=== PATIENT | male | born 1945 | race Hispanic/Latino ===

== ENCOUNTER 2017-01-11 10:45 | Inpatient (IN) | payer MEDICARE, OTHER ==
[2017-01-11 11:29] VITALS: BMI 27.8
[2017-01-11 11:32] LABS: ALT (SGPT) 181 U/L (8-55); AST (SGOT) 52 U/L (5-34); Albumin 3.8 g/dL (3.4-4.8); Alkaline Phosphatase 127 U/L (40-150); Anion Gap 25 mmol/L (10-20); BUN (Urea Nitrogen) 139 mg/dL (8.4-25.7); Bilirubin, Total 0.8 mg/dL (0.2-1.2); Calc. Creatinine Clearance 13 mL/min (70-130); Calcium 9.8 mg/dL (7.8-10.44); Carbon Dioxide 20 mmol/L (23-31); Chloride 94 mmol/L (98-107); Estimated GFR-MDRD 10; Glucose 182 mg/dL (83-110); Potassium 3.3 mmol/L (3.5-5.1); Protein, Total 8.8 g/dL (5.8-8.1); Sodium 136 mmol/L (136-145)
[2017-01-11 11:47] LABS: #Basophils 0.1 thou/uL (0.0-0.2); #Eosinphils 0.1 thou/uL (0.0-0.7); #Lymphocytes 1.2 thou/uL (1.20-3.40); #Monocytes 1.1 thou/uL (0.11-0.59); #Neutrophils 12.1 thou/uL (1.40-6.50); %Basophils 0.4 % (0.0-1.0); %Eosinophils 0.5 % (0.0-10.0); %Lymphocytes 8.5 % (21.0-51.0); %Monocytes 7.4 % (0.0-10.0); %Neutrophils 83.2 % (42.0-75.0); Hemoglobin 10.4 g/dL (14.0-18.0); Mean Corpuscular HGB CONC 30.8 g/dL (32.0-36.0); Mean Corpuscular Volume 71.5 fl (80.0-94.0); Mean Platelet Volume 7.5 fL (7.4-10.4); Platelet Count 247 thou/uL (130-400); RBC Distribution Width 15.4 % (11.5-14.5); Red Blood Cell (RBC) Count 4.73 mill/uL (4.70-6.10); White Blood Cell (WBC) Count 14.6 thou/uL (4.8-10.8)
[2017-01-11 11:48] LABS: Anisocytosis SLIGHT = 6-15 cells (100X) (0-5/hpf); Elliptocytes SLIGHT = 2-5 cells (100X) (0-1/hpf); MDiff Complete? YES; Microcytosis SLIGHT = 6-15 cells (100X) (0-5/hpf); PLT Morphology Comment Appears Adequate; Poikilocytosis SLIGHT = 6-15 cells (100X) (0-5/hpf)
[2017-01-11] MEDS ORDERED: Acetaminophen 325 MG TAB PO PRN (12:36)
[2017-01-11] MEDS ORDERED: Furosemide 40 MG/4 ML VIAL SLOW IVP SCH (12:45)
[2017-01-11] MEDS ORDERED: Furosemide 40 MG/4 ML VIAL ONE (13:35)
[2017-01-11] MEDS ORDERED: Heparin 5,000 UNITS/ML VIAL SC SCH (14:00)
[2017-01-11 18:24] VITALS: BP 135/65; TEMP 98.3
--- NOTE | 2017-01-11 20:33 | RAD ---
CHEST TWO VIEWS: Date: 01-11-17 FINDINGS: The heart is mildly enlarged. There is some diffuse interstitial changes throughout the lungs as wel l as slight congestion of vessels suggestive of mild CHF. There is a more focal infiltrate in the le ft upper lobe. This is most likely a focal pneumonia. The diaphragm is flat as one might see with [place] PD. The bony structures showed no acute change. IMPRESSION: 1. Focal left upper lobe infiltrate consistent with pneumonia. 2. Mild cardiomegaly and probable mild congestive change. 3. Presumed COPD. Findings discussed with Dr. Saunders at 1840. Code CR. POS: HOME
--- NOTE | 2017-01-11 23:40 | HP ---
HISTORY AND PHYSICAL AND TRANSFER SUMMARY CHIEF COMPLAINT: Shortness of breath. HISTORY OF PRESENT ILLNESS: A 71-year-old male who presented to the clinical setting today with a 4-5 day course of vague upper respiratory symptoms consisting of dry cough and sore throat with congestion along with decreased appetite. He denies having had fever, chills or diaphoresis. He does report to be more short of breath recently, but specifically denies orthopnea. He has a history of diastolic congestive heart failure and has noted an increase in lower extremity edema, although he has had no significant weight gain. He did report to be taking his blood pressure/diuretic medications as prescribed. In the clinical setting, he was notably hypoxic on room air with saturation of 87% and exam findings were positive for crackles to the left lung field, 1+ edema to the right lower extremity and 1-2+ edema to the left lower extremity and positive for jugular venous distension. Secondary to these physical exam findings and his hypoxic state, he was directly admitted to [facility]. Subsequent lab evaluation noted the BNP to be quite elevated at 2780 and noted decline in his renal function with a BUN at 139, creatinine of 5.46 and GFR of 10; the patient typically has CKD stage 3. In addition to this, his CBC showed a leukocytosis with a left shift without bands, white blood cell count of 14.6 and a preliminary read of the chest x-ray appears consistent with a left upper lobe pneumonia; however, this has not been read by Radiology to this point. He is currently on supplemental oxygen at 3 liters and saturation at 90%. The patient has findings consistent with cardiorenal syndrome. Thus, I have consulted Dr. Cueto at [facility] in [place] for transfer of care to which he agrees. To this point, the patient has received 40 mg IV Lasix upon his direct admission to the floor here; however, has not received any antibiotic treatment nor have blood cultures been drawn. His other vitals are quite stable with a temperature of 98.2, pulse is 69, respiratory rate is 20 and blood pressure is 133/60. PAST MEDICAL HISTORY: Diastolic congestive heart failure, hypertension, peripheral vascular disease and Victoria's palsy. PAST SURGICAL HISTORY: He has had a bilateral carotid endarterectomy. SOCIAL HISTORY: He is a nonsmoker. No alcohol or illicit drug use. FAMILY HISTORY: Noncontributory. ALLERGIES: GABAPENTIN and LISINOPRIL. CURRENT MEDICATIONS: Include bisoprolol and hydrochlorothiazide 10/6.25 mg 2 tablets p.o. daily; amlodipine 10 mg p.o. daily; hydralazine 50 mg 2 tabs 3 times a day; Tylenol with codeine; Tylenol #3 three times a day p.r.n.; atorvastatin 20 mg p.o. at bedtime; Lasix 20 mg p.o. daily; nifedipine 60 mg extended release p.o. b.i.d.; calcitriol 0.5 mcg 1 capsule Wednesday, Wednesday and Wednesday and aspirin 81 mg p.o. daily. REVIEW OF SYSTEMS: General: The patient denies fever or chills. He does complain of fatigue. Ear, Nose and Throat: Mild sore throat. Denies earache. Cardiovascular: Denies chest pain or palpitations. Respiratory: Complains of shortness of breath. Denies cough. Gastrointestinal: Denies nausea, vomiting, diarrhea, constipation, melena or hematochezia. Musculoskeletal: Denies joint pain. Dermatologic: Denies rash. Neurologic: Denies headache. PHYSICAL EXAMINATION: GENERAL: The patient is alert and oriented, in no acute distress. HEENT: Face: He has a left-sided chronic facial droop. Eyes: Conjunctivae are clear. Extraocular muscles are intact bilaterally. No discharge. Head, eyes, ears, and throat are within normal limits. Oral cavity: Moist mucous membranes. He has dentures. NECK/THYROID: Supple. Full range of motion. No lymphadenopathy, no meningeal signs. Positive JVD. CARDIOVASCULAR: Regular rate and rhythm. Normal S1 and S2. He has got a 2/6 murmur. RESPIRATORY: He has crackles to the left lung paulino. GASTROINTESTINAL: Soft and nontender to palpation. No masses. EXTREMITIES: Warm and well-perfused. No clubbing or cyanosis. He has 1+ edema to the right lower extremity, 1-2+ pitting edema to the left lower extremity. MUSCULOSKELETAL: Kyphosis to the cervical spine. SKIN: Approximately 6 cm vertical scars overlying the right and left carotid arteries. NEUROLOGIC: Facial asymmetry with left-sided chronic facial droop nonfocal. ASSESSMENT AND PLAN: 1. Cardiorenal syndrome as stated per HPI. The patient will be transitioned from [facility] to [facility] for further care. 2. Diastolic congestive heart failure. The patient did receive 40 mg IV Lasix prior to transfer of care. The patient has a BNP of 2780. 3. Acute on chronic renal failure. The patient typically is stage 3 chronic kidney disease and followed by Dr. Ariza; however, he has noted acute renal failure with a glomerular filtration rate of 10, BUN of 139 and creatinine of 5.46. 4. Hypoxia. The patient is currently supplemented on oxygen via nasal cannula. He is in no respiratory distress. 5. Left upper lobe pneumonia. There is a pending official radiological read regarding this and he has not been started on any antibiotic treatment as he was directly admitted from the clinic and is just now being followed up on his x -ray reading. Accordingly, he has not had any blood cultures drawn. YEISON
== END 2017-01-11 18:32 | disposition short-term general hospital (02) | DRG 291 ==
LOC: BURMED 10:45
PROVIDERS: ADMIT Family Medicine; ATTEND Family Medicine
DX: I13.0 Hypertensive heart and chronic kidney disease with heart failure and stage 1 through stage 4 chronic kidney disease, or unspecified chronic kidney disease (principal); J18.9 Pneumonia, unspecified organism; N17.9 Acute kidney failure, unspecified; N18.3 Chronic kidney disease, stage 3 (moderate); I73.9 Peripheral vascular disease, unspecified; I50.32 Chronic diastolic (congestive) heart failure; G51.0 Bell's palsy; Z88.8 Allergy status to other drugs, medicaments and biological substances
CPT/HCPCS: 71020; 80053; 83880; 85025; A4216; J1644; J1940